=== PATIENT | female | born 1975 | race Two or more races ===

== ENCOUNTER → 2018-08-31 | Emergency (ER) | payer OTHER ==
[~2018-08-31] VITALS: Ht 157.5 cm; Wt 106.6 kg
[~2018-08-31] MED LIST: ANTICONCEPTIVAS; ZANTAC150 M3
== END | disposition home or self-care (01) ==
LOC: ER 19:16
DX: K29.70 Gastritis, unspecified, without bleeding (principal)

== ENCOUNTER 2023-11-20 06:05 | Day surgery (SDC) | payer OTHER ==
[2023-11-16 08:04] LABS: HEMATOCRIT 39.7 % (36.0-45.00); HEMOGLOBIN 13.2 g/dL (12.0-15.00); MEAN CELL VOLUME 83.7 fL (80.00-100.00); MEAN CORPUSCULAR HEMOGLOBIN 27.8 pg (27.00-32.0); MEAN CORPUSCULAR HGB CONC 33.2 g/dl (32.0-36.0); PLATELET COUNT 286 K/uL (150-450); RED BLOOD COUNT 4.74 M/uL (4.00-6.00)
[2023-11-16 08:18] VITALS: BP 114/80
[2023-11-16 08:32] LABS: INR 0.98; PARTIAL THROMBOPLASTIN TIME 27.3 SECONDS (22.0-34.0); PROTHROMBIN TIME 10.3 SECONDS (9.0-11.5)
[2023-11-16 08:38] LABS: PH,URINE 6.5 (5.0-8.0); URINE APPEARANCE Clear; URINE BILIRRUBIN Negative (NEGATIVE); URINE BLOOD Trace; URINE COLOR Yellow; URINE GLUCOSE Negative (NEGATIVE); URINE KETONE Negative (NEGATIVE); URINE LEUKOCYTE Moderate; URINE NITRATE Negative; URINE PROTEIN Negative (NEGATIVE); URINE UROBILINOGEN 0.2 E.U./dl
[2023-11-16 08:39] LABS: URINE BACTERIA 1282.6 uL (0.0-1933); URINE EPITHELIAL CELLS 21.9 uL (0.0-38.8); URINE RBC 2.4 uL (0.0-20.8); URINE WBC 87.5 uL (0.0-23.2)
[2023-11-16 09:07] LABS: ALBUMIN 3.2 gm/dL (3.4-5.0); BILIRUBIN TOTAL 0.19 mg/dL (0.3-1.2); CALCIUM 9.1 mg/dL (8.5-10.1); CREATININE SERUM 0.66 mg/dL (0.55-1.02); GLOBULINA 4.3 G/DL (2.4-3.5); POTASSIUM 4.48 mEq/L (3.5-5.1); TOTAL PROTEIN 7.5 gm/dL (6.4-8.2)
[~2023-11-20] VITALS: Ht 154.9 cm; Wt 64.0 kg
[~2023-11-20 06:05] MED LIST changes: +ACID REDUCER20 M1 PO; +NIKKI 3 MG-0.01 EACH PO
[2023-11-20] MEDS ORDERED: PROMETHAZINE HCL 50 MG/ML AMPUL IM ONE (21:00)
[2023-11-20] MEDS ORDERED: MORPHINE SULFATE 4 MG/ML VIAL IV PRN (21:00)
[2023-11-21] MEDS ORDERED: POVIDONE-IODINE 118 ML BOTT TOP ONE (00:30)
== END 2023-11-21 04:00 | disposition home or self-care (01) ==
LOC: U 06:05 → CIR.AMB 06:05
PROVIDERS: ATTEND Obstetrics & Gynecology Obstetrics
DX: N93.8 Other specified abnormal uterine and vaginal bleeding (principal); N72 Inflammatory disease of cervix uteri; N85.00 Endometrial hyperplasia, unspecified; K21.9 Gastro-esophageal reflux disease without esophagitis